=== PATIENT | female | born 1985 | race Caucasian/White ===

== ENCOUNTER 2021-10-23 08:52 | Outpatient (CLI) | payer SELFPAY ==
[2021-10-23 09:14] LABS: HF Add Manual Diff No
[2021-10-23 09:28] LABS: Basophils % 0.4 %; Eosinophils # 0.1 10^3/uL (0.0-0.8); Eosinophils % 1.1 %; Hemoglobin 14.8 g/dL (11.5-15.3); Lymphocytes % 28.4 %; Mean Corpuscular HGB Conc 33.6 g/dL (30.0-36.0); Mean Corpuscular Hemoglobin 29.7 pg (28.0-34.0); Mean Corpuscular Volume 88.4 fl (81-99); Monocytes # 0.5 10^3/uL (0.2-0.9); Monocytes % 6.8 %; Neutrophils # 4.42 10^3/uL (1.8-7.7); Nucleated Red Blood Cells % 0 %; Platelet Count 267 10^3/cmm (130-400); Red Blood Count 4.98 10^6/uL (4.1-5.3); Red Cell Distribution Width 12.6 % (12.1-15.1)
[2021-10-23 10:05] LABS: Alanine Aminotransferase 12 U/L (0-33); Albumin Level 4.7 g/dL (3.5-5.2); Alkaline Phosphatase 73 IU/L (35-105); Anion Gap 16.9 (5-19); Aspartate Amino Transferase 11 U/L (0-32); Blood Urea Nitrogen 13 mg/dL (6-20); Calcium 9.1 mg/dL (8.5-10.5); Carbon Dioxide 22 mmol/L (22-29); Chloride 104 mmol/L (98-107); Cholesterol 196 mg/dL (0-200); Glomerular Filtration Rate 93.6 mL/min (90-130); Glucose 103 mg/dL (65-115); HDL Cholesterol 40 mg/dL (60-100); LDL Cholesterol Calculated 120 mg/dL (50-129); Osmolality Calculated 288 mOsm/kg (285-295); Potassium 3.9 mmol/L (3.5-5.1); Sodium 139 mmol/L (136-145); Thyroid Stimulating Hormone 1.34 uIU/mL (0.27-4.20); Total Bilirubin 0.3 mg/dL (0.15-1.2); Total Protein 7.7 g/dL (6.6-8.7); Triglycerides 178 mg/dL (0-150)
[2021-10-23 10:09] LABS: Estmated Average Glucose 105; Hemoglobin A1C 5.3 % (4.0-6.0)
[2021-10-23 10:50] LABS: 25 Hydroxy Vitamin D > 100 ng/mL (30-100)
== END 2021-10-23 08:53 | disposition home or self-care (01) ==
LOC: LAB 08:58
PROVIDERS: PCP Family Medicine; Visit Provider Dermatology
DX: Z01.89 Encounter for other specified special examinations (principal)

== ENCOUNTER 2021-10-29 06:16 | Emergency (ER) | payer OTHER, SELFPAY ==
--- NOTE | 2021-10-29 06:59 | ED_ITS ---
HPI - General Adult General: Chief complaint: Needlestick/Injury/Exposure Stated complaint: NEEDLE STICK Time Seen by Provider: 10/29/21 06:26 History of Present Illness: HPI narrative: 36-year-old female presents emergency room after incidental needlestick while working. She has no other injuries immunizations are up-to-date. 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 The source patient is being tested for hepatitis HIV, patient requests testing as well. Needlestick itself was on the right index finger laterally just proximal to the PIP joint. She reported it did draw a small amount of blood however it time examiner is barely noticeable on the skin. Patient also relate it is very superficial. Needle stick was with a needle that had been used to draw blood just prior to being stuck was a 22-gauge. Physical Exam Const: COMMON NORMALS: no acute distress GENERAL APPEARANCE: cooperative and comfortable ORIENTATION/CONSCIOUSNESS: Yes awake, Yes oriented to person, Yes oriented to place and Yes oriented to time Extremity: OTHER: Right index finger small needle stick no active bleeding no signs of redness or erythema Neuro: SENSORIUM/ORIENTATION: Yes oriented to person, Yes oriented to place and Yes oriented to time Skin: COMMON NORMALS: no rashes or lesions noted GENERAL SKIN EXAM: no rashes or lesions noted Course Vital Signs: Vital signs: Vital Signs Temperature 98.0 F 10/29/21 07:23 Pulse Rate 62 10/29/21 07:23 Respiratory Rate 18 10/29/21 07:23 Blood Pressure 132/82 10/29/21 07:23 Pulse Oximetry 97 10/29/21 07:23 MDM - General Adult Lab Data: Labs: Lab Results 10/29/21 10/29/21 06:28 06:28 Hepatitis A IgM Ab Non-reactive (Nonreactive) Hep Bs Antigen Non-reactive (Nonreactive) Hep B Core IgM Ab Non-reactive (Nonreactive) Hepatitis C Antibo dy Non-reactive (Nonreactive) HIV 1&2 Ab & HIV 1 Ag Non-reactive (Non-Reactiv) HIV 1&2 Antibody Non-reactive (Non-Reactiv) Discharge Plan Discharge Patient Disposition: Home Clinical Impression: Needlestick injury of finger Condition: Stable Discharge Orders: Discharge ED (Routine); Ordered 10/29/21 Ordered By: Alan Giordano Patient Instructions: Opioid Safety Coding Level of Care Code ED [employer] Super[employer] for Ada Hogan
[2021-10-29 07:23] VITALS: BP 132/82; PULSE 62; RESP 18; TEMP 36.7; O2SAT 97
[2021-10-29 07:38] LABS: Hepatitis A Antibody IgM Non-Reactive (Nonreactive); Hepatitis B Core IgM Non-Reactive (Nonreactive); Hepatitis B Surface Antigen Non-Reactive (Nonreactive); Hepatitis C Virus Antibody Non-Reactive (Nonreactive)
[2021-10-29 07:44] LABS: HIV 1 & 2 Antibody Non-Reactive (Non-Reactiv); HIV 1 & 2 Antigen Non-Reactive (Non-Reactiv)
== END 2021-10-29 08:28 | disposition home or self-care (01) ==
PROVIDERS: Emergency Medicine; Emergency Provider Family Medicine
DX: S69.81XA Other specified injuries of right wrist, hand and finger(s), initial encounter (principal); X58.XXXA Exposure to other specified factors, initial encounter; Y99.0 Civilian activity done for income or pay; W46.1XXA Contact with contaminated hypodermic needle, initial encounter
CPT/HCPCS: 36415; 80074; 87806; 99282